=== PATIENT | male | born 1995 | race Caucasian/White ===

== ENCOUNTER 2021-10-12 12:51 | Observation (INO) | payer OTHER ==
[2021-10-12] MEDS ORDERED: Fentanyl 100 MCG/2 ML VIAL ONE (13:26)
[2021-10-12] MEDS ORDERED: Midazolam HCl 2 mg/2 ml Vial ONE (13:26)
[2021-10-12] MEDS ORDERED: HYDROmorphone 0.5 MG/0.5 ML SYRINGE ONE (13:42)
[2021-10-12] MEDS ORDERED: ceFAZolin (BATCH) 2 GM/100 ML BAG ONE (13:45)
[2021-10-12] MEDS ORDERED: diphenhydrAMINE 25 MG CAP ONE (13:53)
[2021-10-12] MEDS ORDERED: diphenhydrAMINE 50 MG/ML VIAL ONE (13:53)
[2021-10-12] MEDS ORDERED: PROPOFOL 200 MG/20 ML VIAL ONE (13:58)
[2021-10-12] MEDS ORDERED: Dexamethasone 20 MG/5 ML VIAL ONE (13:58)
[2021-10-12] MEDS ORDERED: Ondansetron PF 4 MG/2 ML Vial ONE (13:58)
[2021-10-12] MEDS ORDERED: Lidocaine 1% PF 5 ML VIAL ONE (13:58)
[2021-10-12] MEDS ORDERED: Ketorolac Tromethamine 30 MG/ML VIAL ONE (13:58)
[2021-10-12 14:13] LABS: SARS-CoV-2 NAA Rapid Test Not Detected (NotDetected)
[2021-10-12] MEDS ORDERED: Ropivacaine 0.5% HCl/PF (150 MG/30 ML VIAL) ONE (14:15)
[2021-10-12] MEDS ORDERED: HYDROcodone/Acetaminophen 10/325 mg Tablet PO PRN ×2 (16:32)
[2021-10-12] MEDS ORDERED: Morphine Sulfate 2 MG/ML SYRINGE SLOW IVP PRN (16:36)
[2021-10-12] MEDS ORDERED: Promethazine HCl 25 MG/ML VIAL IVPB PRN (16:36)
[2021-10-12] MEDS ORDERED: Promethazine HCl 25 MG/ML VIAL IM PRN (16:36)
[2021-10-12] MEDS ORDERED: Ondansetron HCl/PF 4 MG/2 ML Vial IVP PRN (16:36)
[2021-10-12] MEDS ORDERED: PACU-Morphine 4MG/ML VIAL SLOW IVP PRN (16:36)
[2021-10-12] MEDS ORDERED: HYDROmorphone 2 MG/ML VIAL SLOW IVP PRN (16:36)
[2021-10-12] MEDS ORDERED: Meperidine HCl/PF 25 MG/ML VIAL SLOW IVP PRN (16:36)
[2021-10-12] MEDS ORDERED: Communication Order-Pharmacy FS SCH (16:45)
[2021-10-12] MEDS ORDERED: Morphine 4 MG/ML VIAL SLOW IVP PRN (18:08)
[2021-10-12] MEDS: Aspirin 81 mg Enteric Coated Tablet PO SCH (21:18)
[2021-10-12] MEDS: CEFAZOLIN 2 GM, Admixture Fee 1 EACH in Sodium Chloride 0.9% 100 ML IVPB SCH (21:23)
[2021-10-12 22:03] VITALS: BMI 19.0
[2021-10-13] MEDS: CEFAZOLIN 2 GM, Admixture Fee 1 EACH in Sodium Chloride 0.9% 100 ML IVPB SCH (05:46)
[2021-10-13 06:03] LABS: #Lymphocytes 1.3 thou/uL (1.20-3.40); #Monocytes 0.8 thou/uL (0.11-0.59); %Eosinophils 0.1 % (0.0-10.0); %Lymphocytes 13.8 % (21.0-51.0); %Monocytes 8.5 % (0.0-10.0); %Neutrophils 77.5 % (42.0-75.0); Hemoglobin 10.6 g/dL (14.0-18.0); Mean Corpuscular HGB CONC 34.2 g/dL (32.0-36.0); Mean Corpuscular Hemoglobin 30.8 pg (27.0-31.0); Mean Corpuscular Volume 90.1 fL (78.0-98.0); Platelet Count 300 thou/uL (130-400); RBC Distribution Width 10.8 % (11.5-14.5); Red Blood Cell (RBC) Count 3.44 mill/uL (4.70-6.10); White Blood Cell (WBC) Count 9.1 thou/uL (4.8-10.8)
[2021-10-13 08:36] VITALS: TEMP 97.9
[2021-10-13] MEDS: Aspirin 81 mg Enteric Coated Tablet PO SCH (09:01)
[2021-10-13 12:03] VITALS: BP 120/75
== END 2021-10-13 13:35 | disposition home or self-care (01) ==
LOC: SDC 12:51 → SJJU 18:04
PROVIDERS: ADMIT Orthopaedic Surgery; ATTEND Orthopaedic Surgery
PROC: 0QSG04Z Reposition Right Tibia with Internal Fixation Device, Open Approach (ICD-10-PCS; principal; 2021-10-12)
PROC: 0QHJ04Z Insertion of Internal Fixation Device into Right Fibula, Open Approach (ICD-10-PCS; 2021-10-12)
PROC: 3E0T3BZ Introduction of Anesthetic Agent into Peripheral Nerves and Plexi, Percutaneous Approach (ICD-10-PCS; 2021-10-12)
PROC: 3E0T3BZ Introduction of Anesthetic Agent into Peripheral Nerves and Plexi, Percutaneous Approach (ICD-10-PCS; 2021-10-12)
DX: S82.871A Displaced pilon fracture of right tibia, initial encounter for closed fracture (principal); S82.831A Other fracture of upper and lower end of right fibula, initial encounter for closed fracture; Z20.822 Contact with and (suspected) exposure to COVID-19; W17.89XA Other fall from one level to another, initial encounter; Y93.41 Activity, dancing; Y92.838 Other recreation area as the place of occurrence of the external cause
CPT/HCPCS: 36415; 76000; 85025; 96374; 96376; C1713; C1889; G0378; J0690; J1100; J1170; J1200; J1885; J2250; J2405; J2704; J2795; J3010; J3490; U0002